=== PATIENT | female | born 1965 | race Caucasian/White ===

== ENCOUNTER 2017-01-12 10:55 | Emergency (ER) | payer BC ==
[~2017-01-12] VITALS: Ht 160 cm; Wt 74.9 kg
[~2017-01-12 10:55] MED LIST: AMITRIPTYLINE H50 MG PO; ATORVASTATIN CA40 MG PO; ATORVASTATIN CA80 MG PO; BENADRYL25 MG PO; BENTYL20 MG PO; BUTALB-APAP-CA1 EACH PO; CLOPIDOGREL75 MG PO; CYCLOBENZAPRINE10 MG PO; DILAUDID4 MG PO; EFFIENT10 MG PO; ENDOCET 5-3251 EACH PO; FLEXERIL10 MG PO; GLUCOTROL XL10 MG PO; GLUCOVANCE PO; HYDROCODON-ACE1 EAC7 PO; IMDUR60 MG PO; INSULIN PUMP SCCONT; LASIX20 MG PO; LASIX40 MG PO; LASIX80 MG PO; LISINOPRIL2.5 MG PO; LOPRESSOR25 MG PO; MOTRIN800 MG PO; NITROSTAT0.4 MG SL; NORCO 5/3251 TABLET PO; PEPCID20 MG PO; PERCOCET 5/31 TABLET PO; PLAVIX75 MG PO; PRINIVIL5 MG PO; RANEXA500 MG PO; REQUIP2 MG PO; TOPIRAMATE25 MG PO; TOPROL XL25 MG PO; TRADJENTA5 MG PO
[2017-01-12 11:23] LABS: HEMATOCRIT 38.7 % (36.0-46.0); MCH 27.6 PG (29.0-34.0); MCHC 35.4 G/DL (30.0-36.0); MEAN PLAT.VOLUME 9.7 uM^3 (9.5-12.4); PLATELET COUNT 231 K/uL (156-360); RBC DIS.WIDTH-CV 14.5 % (11.8-14.6); RBC DIS.WIDTH-SD 39.9 % (39-53); RED BLOOD COUNT 4.96 M/uL (3.80-5.20); WHITE BLOOD COUNT 7.5 K/uL (4.1-10.2)
[2017-01-12 11:40] LABS: CHLORIDE 102 mEq/L (99-109); POTASSIUM 4.2 mEq/L (3.7-5.4); SODIUM 136 mEq/L (136-147)
[2017-01-12 11:41] LABS: GLUCOSE 348 mg/dL (70-99)
[2017-01-12 11:43] LABS: ANION GAP 11 MEQ/L (2-14)
[2017-01-12 11:45] LABS: GFR ESTIMATE (CALCULATED) > 59 mL/min/
[2017-01-12 11:46] LABS: UREA NITROGEN (BUN) 14 mg/dL (9-23)
[2017-01-12 11:51] LABS: TROP-I INTERPRETATION NEGATIVE; TROPONIN-I 0.01 ng/mL (0.0-0.30)
[2017-01-12 14:45] LABS: TROP-I INTERPRETATION NEGATIVE; TROPONIN-I 0.01 ng/mL (0.0-0.30)
[2017-01-12 15:05] LABS: POINT-OF-CARE METER ID UU13113800
[2017-01-12 15:16] LABS: POINT-OF-CARE METER ID UU13113778
[2017-01-12] MEDS ORDERED: FLEXERIL10 MG PO (15:35)
[2017-01-12 15:47] VITALS: BP 130/74
== END 2017-01-12 15:47 | disposition left against medical advice (07) ==
LOC: EME 10:55
PROVIDERS: Nurse Practitioner Family
DX: R07.9 Chest pain, unspecified (principal); E11.65 Type 2 diabetes mellitus with hyperglycemia; Z91.14 Patient's other noncompliance with medication regimen; S29.011A Strain of muscle and tendon of front wall of thorax, initial encounter; I25.2 Old myocardial infarction; Z98.61 Coronary angioplasty status; E78.5 Hyperlipidemia, unspecified; I10 Essential (primary) hypertension; M79.7 Fibromyalgia
CPT/HCPCS: 71020; 80048; 82948; 84484; 85027; 93005; 99281; 99284

== ENCOUNTER 2017-02-21 18:03 | Emergency (ER) | payer BC ==
[~2017-02-21] VITALS: Ht 160 cm; Wt 80.2 kg
[2017-02-21] MEDS ORDERED: PERCOCET 5/31 TABLET PO (19:19)
[2017-02-21 19:30] VITALS: BP 132/82
== END 2017-02-21 19:31 | disposition home or self-care (01) ==
LOC: EME 18:03
DX: S22.32XA Fracture of one rib, left side, initial encounter for closed fracture (principal); Z95.5 Presence of coronary angioplasty implant and graft; Z88.6 Allergy status to analgesic agent; Z88.0 Allergy status to penicillin; X50.1XXA Overexertion from prolonged static or awkward postures, initial encounter
CPT/HCPCS: 71101; 99281; 99283